=== PATIENT | male | born 1975 | race Caucasian/White ===

== ENCOUNTER 2023-12-12 17:25 | Emergency (ER) | payer MEDICAID, SELFPAY ==
[2023-12-12 17:55] VITALS: BP 114/66; PULSE 76; TEMP 36.6; O2SAT 100; BMI 27.0
--- NOTE | 2023-12-12 19:17 | ECG_ITS ---
The [facility] Test Date: 2023-12-12 Pat Name: ERICK SHIELDS Department: Room: - Gender: Male [employer]: : 1975 Requested By: [id number] Order Number: [id number] Reading MD: FENG HICKS Measurements Intervals [place] Rate: 69 P: 43 IN: 186 QRS: 83 QRSD: 76 T: 50 QT: 376 QTc: 395 Interpretive Statements 1100 Sinus rhythm 9110 normal ECG No previous ECG available for comparison Electronically Signed On 12-13-2023 6:53:22 EST by FENG HICKS
--- NOTE | 2023-12-12 19:17 | CT_ITS ---
The [address] [address] Patient Name: ERICK SHIELDS MRN: [id number] date: 1975 Sex: M Assigned Patient Location: ER Current Patient Location: Accession/Order Number: [id number] Exam Date: 12/12/2023 19:50 Report Date: 12/12/2023 21:57 At the request of: SB MARKER Procedure: CT head/brain wo con EXAM: CT head/brain wo con INDICATION: 48 years old; Male. Headache. Dizziness which is worsening for 2 to 3 months. TECHNIQUE: CT Head (ax/cor/sag reformats). Ionizing radiation dose reduced via iterative reconstruction/FBP blend and body size kV/mA adjustment. Comparison: None FINDINGS: POSTOPERATIVE CHANGES: None. BRAIN PARENCHYMA: No intraparenchymal or extra-axial hemorrhage. No mass effect. No midline shift or herniation. Normal tang/white differentiation. VENTRICLES/EXTRA-AXIAL SPACES: Normal for patient's age. SINUSES/MASTOIDS: Sinuses are clear although the maxillary sinuses are not completely included. Mastoids and middle ears are clear. MSK: No displaced or depressed calvarial fracture. OTHER: No hyperdense intraluminal thrombus. CT/CT head/brain wo con IMPRESSION: 1. No acute intracranial abnormality. No hemorrhage or mass effect. Recommend follow-up with MRI for further evaluation. Electronically authenticated by: DRU AKERS Date: 12/12/2023 21:57
--- NOTE | 2023-12-12 19:19 | ED_ITS ---
HPI - Dizziness General Chief Complaint: Dizziness Stated Complaint: FAINTING SPELLS/BP Time Seen by Provider: 12/12/23 19:06 Mode of arrival: walk-in Limitations: no limitations History of Present Illness HPI Narrative: 48-year-old male with a history of alcohol dependence presents for evaluation of episodes of dizziness. He states he has been having episodes of dizziness with positional changes for approximately 1 month. Approximately 1 and half months ago his blood pressure medication was increased to lisinopril 30 mg. He feels that since having this medication increased his dizzy spells have increased. He states that yesterday he almost passed out while helping his brother do some work in his house. Today he developed a headache. He states he recently started a new job and when he has to stand for a long period of time he also feels dizzy. He does not have any blurred vision slurred speech or confusion. He has no focal neurologic weakness numbness or tingling. He has not actually passed out. He denies any chest pain or shortness of breath. He uses chewing tobacco but does not smoke cigarettes. He states that he drinks a couple drinks every day because his doctor told him that he needs to have a couple drinks every day to keep him from having seizures. He states he has clips in his stomach because he recently had a GI bleed that was treated at [facility]. At that time he was drinking heavily and taking a lot of pain pills. Since that time he has cut down to just 2 drinks a day. He has not lost any weight. He denies any abdominal pain or black tarry stools at this time. Related Data Allergies Allergy/AdvReac Type Severity Reaction Status Date / Time Penicillins Allergy Severe Hives Verified 12/12/23 18:00 Review of Systems ROS Status of ROS 10 or more systems reviewed and unremark able except as noted in history and below PFSH PFSH Social History Little interest or pleasure in doing things: not at all Feeling down, depressed, or hopeless: not at all Exam Narrative Exam Narrative: Vital signs and Nursing Notes reviewed: Patient is afebrile with a normal pulse, normal blood pressure, he is not hypoxic with pulse ox of 100% on room air General: Awake, alert, oriented, no acute distress, lying comfortably on the stretcher HEENT: Normocephalic atraumatic, mucous membranes are moist and pink, eyes are clear, normal conjunctiva, vision is grossly intact, no nystagmus noted, posterior pharynx is normal in appearance. Tympanic membranes are normal bilaterally Neck: Supple, no meningeal signs, no JVD Chest: Lungs are clear to auscultation with good air entry, there is no wheezing rhonchi or rales appreciated no accessory muscle use, patient is speaking in complete sentences-no chest wall tenderness to palpation CVS: Regular rate and rhythm S1-S2, no murmurs rubs or gallops, pulses are brisk and equal bilaterally ABD: Soft, nondistended, nontender, no rebound guarding or rigidity, bowel sounds are normal, no pulsatile masses appreciated Extremities: Moving all extremities, no lower extremity tenderness or swelling noted, negative Homans' sign, pulses are brisk and equal bilaterally Skin: Normal in appearance without rash,pallor, petechiae or purpura Neuro: Speech is clear, patient has facial gesticulations, there is no facial droop, negative pronator drift, collect on delivery clerk strength is intact but is somewhat decreased on the left. Patient is able to raise both legs off of the stretcher but has some difficulty raising the left leg off the stretcher he states this is due to chronic hip pain. Constitutional Vital Signs, click to edit/add: Last Vital Signs Temp 98 F 12/12/23 17:55 Pulse 74 12/12/23 22:03 Resp 16 12/12/23 22:03 BP 106/70 12/12/23 22:03 Pulse Ox 100 12/12/23 22:03 O2 Del Method Room Air 12/12/23 17:55 Course Vital Signs Vital signs: Vital Signs Temperature 98 F 12/12/23 17:55 Pulse Rate 76 12/12/23 17:55 Respiratory Rate 20 12/12/23 17:55 Blood Pressure 114/66 12/12/23 17:55 Pulse Oximetry 100 12/12/23 17:55 Oxygen Delivery Method Room Air 12/12/23 17:55 Temperature 98 F 12/12/23 17:55 Pulse Rate 74 12/12/23 22:03 Respiratory Rate 16 12/12/23 22:03 Blood Pressure 106/70 12/12/23 22:03 Pulse Oximetry 100 12/12/23 22:03 Oxygen Delivery Method Room Air 12/12/23 17:55 MDM - Dizziness MDM Narrative Medical decision making narrative: This 48-year-old male with history of hypertension who is on lisinopril 30 mg daily which was recently increased presents for evaluation of episodes of dizziness and near syncope. He does admit to daily alcohol use. He has a history of a GI bleed requiring clips in his stomach. Apparently the patient's brother dropped him off after he was helping him yesterday and the patient became lightheaded and his eyes rolled back in his head. He did not pass out at that time. Today he developed a headache. His brother brought him to the ER. The patient has some strange gesticulations on his exam and his neuroexam is otherwise normal with mild decrease strength in the left upper extremity and left lower extremity that the patient states is due to chronic pain. EKG done upon arrival was a normal sinus rhythm with no acute findings. Routine labs were ordered and are reviewed. He has a mildly low white count at 3.6 and normal hemoglobin. Liver function tests are normal. Troponin is normal. Alcohol was elevated at 158. Two-view chest x-ray was reviewed by myself and is negative for acute findings. CT scan of the brain was normal. The results of his findings were discussed with him. I encouraged him to drink less alcohol especially in light of the fact that he recently started a new job. I encouraged him to discuss his symptoms of dizziness after his lisinopril was increased to 30 mg with his physician. At this time I do not think it is prudent for me to change his chronic medications. His blood pressure was moderately low in the emergency department although this may be related to his alcohol use as well. Medical Records Medical records narrative: The [address] [address] [address] Scan Report Signed Patient: ERICK SHIELDS MR#: [id number] : 1975 Acct:[id number] Age/Sex: 48 / M ADM Date: 12/12/23 Loc: ER Attending Dr: Ordering Physician: Jeanna Penn Date of Service: 12/12/23 Procedure(s): CT head/brain wo con Accession Number(s): [id number] cc: Mj Ramos D.O.~ The [address] [id number] Patient Name: ERICK SHIELDS MRN: [id number] date: 1975 Sex: M Assigned Patient Location: ER Current Patient Location: ER Accession/Order Number: [id number] Exam Date: 12/12/2023 19:50 Report Date: 12/12/2023 21:57 At the request of: JEANNA PENN Procedure: CT head/brain wo con EXAM: CT head/brain wo con INDICATION: 48 years old; Male. Headache. Dizziness which is worsening for 2 to 3 months. TECHNIQUE: CT Head (ax/cor/sag reformats). Ionizing radiation dose reduced via iterative reconstruction/FBP blend and body size kV/mA adjustment. Comparison: None FINDINGS: POSTOPERATIVE CHANGES: None. BRAIN PARENCHYMA: No intraparenchymal or extra-axial hemorrhage. No mass effect. No midline shift or herniation. Normal tang/white differentiation. VENTRICLES/EXTRA-AXIAL SPACES: Normal for patient's age. SINUSES/MASTOIDS: Sinuses are clear although the maxillary sinuses are not completely included. Mastoids and middle ears are clear. MSK: No displaced or depressed calvarial fracture. OTHER: No hyperdense intraluminal thrombus. CT/CT head/brain wo con IMPRESSION: 1. No acute intracranial abnormality. No hemorrhage or mass effect. Recommend follow-up with MRI for further evaluation. Electronically authenticated by: DRU AKERS Date: 12/12/2023 21:57 Lab Data Labs: Lab Results 12/12/23 Range/Units 19:28 WBC 3.6 L (4.0-11.0) 10^3/uL RBC 4.11 L (4.70-6.10) 10^6/uL Hgb 12.0 L (14.0-18.0) g/dL Hct 37.0 L (42.0-54.0) % MCV 90.0 (80.0-94.0) fL MCH 29.2 (25.9-34.0) pg MCHC 32.4 (29.9-35.2) g/dL RDW 14.4 (11.0-15.0) % Plt Count 226 (150-450) 10^3/uL MPV 9.3 L (9.5-13.5) fL Neut % (Auto) 54.4 (43.0-75.0) % Lymph % (Auto) 30.3 (20.5-60.0) % [place] % (Auto) 10.3 (1.7-12.0) % Eos % (Auto) 3.6 (0.9-7.0) % Baso % (Auto) 1.4 (0.2-2.0) % Neut # (Auto) 2.0 (1.4-6.5) 10^3/uL Lymph # (Auto) 1.1 L (1.2-3.8) 10^3/uL [place] # (Auto) 0.4 (0.3-0.8) 10^3/uL Eos # (Auto) 0.1 (0.0-0.7) 10^3/uL Baso # (Auto) 0.1 (0.0-0.1) 10^3/uL Abs Immat Gran (auto) 0.00 (0.00-0.03) 10^3/uL Imm/Tot Granulo (auto) 0.0 (0.0-0.5) % Sodium 137 (136-145) mmol/L Potassium 3.8 (3.5-5.1) mmol/L Chloride 101 (98-107) mmol/L Carbon Dioxide 24.5 (21.0-32.0) mmol/L Anion Gap 15.3 BUN 5.0 L (7.0-18.0) mg/dL Creatinine 0.97 (0.70-1.30) mg/dL Est GFR ( Amer) >60 (>=60 mL/min/1.73m^2) Est GFR (Non-Af Amer) >60 (>=60 mL/min/1.73m^2) BUN/Creatinine Ratio 5.2 Glucose 77 (74-106) mg/dL Calcium 9.0 (8.5-10.1) mg/dL Total Bilirubin 0.6 (0.2-1.0) mg/dL AST 26 (15-37) U/L ALT 34 (16-63) U/L Alkaline Phosphatase 59 (46-116) U/L Troponin I High Sens <4.0 L (4.0-76.1) pg/mL Total Protein 7.1 (6.4-8.2) g/dL Albumin 3.6 (3.4-5.0) g/dL Globulin 3.5 g/dL Albumin/Globulin Ratio 1.0 Ethanol Quant 158 mg/dL ECG Data Attestation: I personally reviewed and interpreted this ECG as follows: Discharge Plan Discharge Chief Complaint: Dizziness Clinical Impression: Dizzinesses, Medication adverse effect, Alcohol use disorder Patient Disposition: Home, Self-Care Time of Disposition Decision: 22:17 Print Language: Colombian Instructions: Lightheadedness (ED), Dizziness (ED), Alcohol Use Disorder (ED) Referrals: Mj Ramos DO [Primary Care Provider] - 1 week
[2023-12-12 19:34] VITALS: BP 95/60; PULSE 72; O2SAT 96
[2023-12-12 19:37] LABS: Basophils Absolute Auto 0.1 10^3/uL (0.0-0.1); Basophils Percent Auto 1.4 % (0.2-2.0); Eosinophils Absolute Auto 0.1 10^3/uL (0.0-0.7); Eosinophils Percent Auto 3.6 % (0.9-7.0); Lymphocytes Absolute Auto 1.1 10^3/uL (1.2-3.8); Lymphocytes Percent Auto 30.3 % (20.5-60.0); Mean Corpuscular HGB Conc 32.4 g/dL (29.9-35.2); Mean Corpuscular Hemoglobin 29.2 pg (25.9-34.0); Mean Platelet Volume 9.3 fL (9.5-13.5); Monocytes Absolute Auto 0.4 10^3/uL (0.3-0.8); Monocytes Percent Auto 10.3 % (1.7-12.0); Neutrophils Percent Auto 54.4 % (43.0-75.0); Platelet Count 226 10^3/uL (150-450); Red Blood Count 4.11 10^6/uL (4.70-6.10); Red Cell Distribution Width 14.4 % (11.0-15.0); White Blood Count 3.6 10^3/uL (4.0-11.0)
[2023-12-12] MEDS: ACETAMINOPHEN 325 MG TABLET 650 MG PO (19:43)
--- NOTE | 2023-12-12 19:45 | XR_ITS ---
The [address] [address] Patient Name: ERICK SHIELDS MRN: [id number] date: 1975 Sex: M Assigned Patient Location: ER Current Patient Location: Accession/Order Number: [id number] Exam Date: 12/12/2023 19:50 Report Date: 12/12/2023 22:37 At the request of: SB MARKER Procedure: XR chest 2V EXAMINATION: XR chest 2V, , 12/12/2023 7:50 PM EST INDICATION: dizziness HISTORY: Ordering Provider Reason for Exam: dizziness Technologist Note: Additional: COMPARISON: None. TECHNIQUE: Chest x-ray: Two views. FINDINGS: No pneumothorax, pleural effusion or focal airspace consolidation. A 9 mm round opacity is seen projecting over the right lower chest, which likely represents the right nipple shadow. However, a pulmonary nodule cannot be entirely excluded. If clinically indicated, repeat imaging of the frontal view with nipple markers may be considered. Heart is normal in size. Bony thorax is unremarkable. XR/XR chest 2V IMPRESSION: A 9 mm round opacity is seen projecting over the right lower chest, which likely represents the right nipple shadow. However, a pulmonary nodule cannot be entirely excluded. If clinically indicated, repeat imaging of the frontal view with nipple markers may be considered. Electronically authenticated by: DANIA DANIELLE Date: 12/12/2023 22:37
--- NOTE | 2023-12-12 19:52 | PC.NURSE ---
pt to imaging via wheelchair at this time.
[2023-12-12 19:57] LABS: Alanine Aminotransferase 34 U/L (16-63); Albumin Level 3.6 g/dL (3.4-5.0); Alkaline Phosphatase 59 U/L (46-116); Anion Gap 15.3; Aspartate Amino Transferase 26 U/L (15-37); BUN Creatinine Ratio 5.2; Bilirubin Total 0.6 mg/dL (0.2-1.0); Carbon Dioxide 24.5 mmol/L (21.0-32.0); Chloride 101 mmol/L (98-107); Estimated GFR (African America >60 (>=60 mL/min/1.73m^2); Estimated GFR (Non-African Ame >60 (>=60 mL/min/1.73m^2); Ethanol 158 mg/dL; Globulin 3.5 g/dL; Glucose 77 mg/dL (74-106); Potassium 3.8 mmol/L (3.5-5.1); Sodium 137 mmol/L (136-145); Total Protein 7.1 g/dL (6.4-8.2); Troponin I High Sensitivity <4.0 pg/mL (4.0-76.1)
[2023-12-12 22:03] VITALS: BP 106/70; PULSE 74; O2SAT 100
== END 2023-12-12 22:24 | disposition home or self-care (01) ==
PROVIDERS: Emergency Provider Emergency Medicine; PCP Family Medicine
DX: R42 Dizziness and giddiness (principal); T46.4X5A Adverse effect of angiotensin-converting-enzyme inhibitors, initial encounter; F10.90 Alcohol use, unspecified, uncomplicated; I10 Essential (primary) hypertension; Z79.899 Other long term (current) drug therapy
CPT/HCPCS: 36415; 70450; 71046; 80053; 80320; 84484; 85025; 93005; 99285